=== PATIENT | female | born 1995 | race Caucasian/White ===

== ENCOUNTER 2017-06-12 20:22 | Emergency (ER) | payer MEDICAID ==
[~2017-06-12] VITALS: Ht 154.9 cm; Wt 63.0 kg
[2017-06-12 21:31] VITALS: BP 127/74
--- NOTE | 2017-06-13 00:50 | NUR ---
PATIENT LEFT WITHOUT BEING SEEN BY DR. NARANJO. NO FURTHER CARE PROVIDED FOR PATIENT.
== END 2017-06-13 00:50 | disposition left against medical advice (07) ==
LOC: MED 20:22
DX: R51 Headache (principal); Z53.21 Procedure and treatment not carried out due to patient leaving prior to being seen by health care provider